=== PATIENT | female | born 1960 | race Caucasian/White ===

== ENCOUNTER → 2019-09-04 | Outpatient (CLI) | payer OTHER, MEDICAID ==
[~2019-09-04] MED LIST: ANTABUSE500 MG PO; ASA81BEC PO; ATIVAN0.5 MG PO; CLONAZEPAM 0.50.5 M1 PO; FLUTICASONE NASAL; FLUTICASONE-SA1 EAC3 INH; LISINOPRIL30 MG PO; NEURONTIN 300M300 M2 PO; NORVASC5 MG PO; PAXIL40 MG PO; PERCOCET PO; TRAZODONE HCL50 MG PO; WELLBUTRIN XL150 MG PO; ZANAFLEX4 MG PO
== END ==
LOC: M.RAD 07-24 16:21
DX: Z12.31 Encounter for screening mammogram for malignant neoplasm of breast (principal); M81.0 Age-related osteoporosis without current pathological fracture

== ENCOUNTER → 2019-09-06 | Outpatient (CLI) | payer OTHER, MEDICAID | LOC: M.MRI 08-14 16:30 | DX: S32.000A Wedge compression fracture of unspecified lumbar vertebra, initial encounter for closed fracture (principal); J44.9 Chronic obstructive pulmonary disease, unspecified; K21.9 Gastro-esophageal reflux disease without esophagitis; I10 Essential (primary) hypertension; F17.210 Nicotine dependence, cigarettes, uncomplicated; F41.9 Anxiety disorder, unspecified; F32.9 Major depressive disorder, single episode, unspecified; F14.90 Cocaine use, unspecified, uncomplicated; F12.90 Cannabis use, unspecified, uncomplicated; Z79.899 Other long term (current) drug therapy; Z86.19 Personal history of other infectious and parasitic diseases; Z72.89 Other problems related to lifestyle ==

== ENCOUNTER → 2019-09-23 | Outpatient (CLI) | payer OTHER, MEDICAID | LOC: M.PC 01:13 | DX: M47.816 Spondylosis without myelopathy or radiculopathy, lumbar region (principal); M47.814 Spondylosis without myelopathy or radiculopathy, thoracic region; M51.36 Other intervertebral disc degeneration, lumbar region; M43.8X5 Other specified deforming dorsopathies, thoracolumbar region; Z79.899 Other long term (current) drug therapy ==

== ENCOUNTER → 2019-09-30 | Outpatient (CLI) | payer OTHER, MEDICAID | END | disposition home or self-care (01) | LOC: M.PC 08:30 | DX: M54.5 Low back pain (principal); M47.816 Spondylosis without myelopathy or radiculopathy, lumbar region; M47.814 Spondylosis without myelopathy or radiculopathy, thoracic region; M51.36 Other intervertebral disc degeneration, lumbar region; M48.54XA Collapsed vertebra, not elsewhere classified, thoracic region, initial encounter for fracture; I10 Essential (primary) hypertension; E78.5 Hyperlipidemia, unspecified; F17.210 Nicotine dependence, cigarettes, uncomplicated; F41.9 Anxiety disorder, unspecified; F32.9 Major depressive disorder, single episode, unspecified; Z98.890 Other specified postprocedural states; Z79.899 Other long term (current) drug therapy; Z79.82 Long term (current) use of aspirin ==

== ENCOUNTER 2021-02-09 13:39 | Emergency (ER) | payer OTHER, MEDICAID ==
[~2021-02-09] VITALS: Ht 170.2 cm; Wt 56.7 kg
[2021-02-09] MEDS ORDERED: LIPITOR10 MG PO (13:59)
[2021-02-09] MEDS ORDERED: IBUPROFEN 600600 M1 PO (16:04)
[2021-02-09] MEDS ORDERED: ZANAFLEX4 MG PO (16:04)
[2021-02-09] MEDS ORDERED: MEDROLDOSEPACK PO (16:04)
[2021-02-09] MEDS ORDERED: NORCO5 PO (16:04)
[2021-02-09 16:28] VITALS: BP 155/85
== END 2021-02-09 16:36 | disposition home or self-care (01) ==
LOC: M.ERS 13:39
DX: M54.31 Sciatica, right side (principal); I10 Essential (primary) hypertension; E78.5 Hyperlipidemia, unspecified; Z88.8 Allergy status to other drugs, medicaments and biological substances